=== PATIENT | female | born 2000 | race American Indian/Alaskan Native ===

== ENCOUNTER 2021-01-26 12:11 | Emergency (ER) | payer MEDICAID, OTHER ==
--- NOTE | 2021-01-26 14:09 | CR ---
INDICATION: Pain. TECHNIQUE: Two views of the left foot. COMPARISON: None. IMPRESSION: No acute fracture, subluxation or dislocation. Dictated by Deandre Douglas MD @ 01/26/2021 2:08:36 PM Dictated by: Deandre Douglas MD @ 01/26/2021 14:08:42 (Electronically Signed)
--- NOTE | 2021-01-26 14:17 | CR ---
INDICATION: Pain. TECHNIQUE: Three views of the left ankle. COMPARISON: None. IMPRESSION: No acute fracture is identified. Ankle mortise is symmetric. Dictated by Deandre Douglas MD @ 01/26/2021 2:16:27 PM Dictated by: Deandre Douglas MD @ 01/26/2021 14:16:36 (Electronically Signed)
--- NOTE | 2021-01-26 14:22 | EDM.PDOC ---
ED HPI GENERAL MEDICAL PROBLEM - General Stated Complaint: lft foot droppde a shelf on it Time Seen by Provider: 01/26/21 14:21 Source of Information: Reports: Patient History Limitations: Reports: No Limitations - History of Present Illness INITIAL COMMENTS - FREE TEXT/NARRATIVE: 20-year-old female presents for left foot injury. Patient dropped a shelf on her foot. Ambulatory afterwards had no other injuries ED ROS GENERAL - Review of Systems Review Of Systems: Comprehensive ROS is negative, except as noted in HPI. ED EXAM, GENERAL - Physical Exam Exam: See Below Exam Limited By: No Limitations General Appearance: Alert, WD/WN, No Apparent Distress Ears: Hearing Grossly Normal Throat/Mouth: Normal Voice, No Airway Compromise Head: Atraumatic, Normocephalic Neck: Normal Inspection Respiratory/Chest: No Respiratory Distress, No Accessory Muscle Use Cardiovascular: Normal Peripheral Pulses Extremities: Normal Inspection, Other (Ecchymosis to dorsum of left foot and great toe with normal capillary refill, mild tenderness to palpation, no overt deformities) Neurological: Alert, Normal Cognition, Normal Gait Psychiatric: Normal Affect, Normal Mood Skin Exam: Warm, Dry, Intact, Normal Color Course - Re-Assessments/Exams Free Text/Narrative Re-Assessment/Exam: 01/26/21 14:22 No osseous abnormality on x-ray imaging. Will discharge patient with PMD follow-up. Departure - Departure Time of Disposition: 14:22 Disposition: Home, Self-Care 01 Condition: Good Clinical Impression: Foot injury Qualifiers: Encounter type: initial encounter Laterality: left Qualified Code(s): S99.922A - Unspecified injury of left foot, initial encounter - Discharge Information Instructions: Crush Injury of the Foot Referrals: PCP,Not In Area [Primary Care Provider] - Additional Instructions: The following information is given to patients seen in the emergency department who are being discharged to home. This information is to outline your options for follow-up care. We provide all patients seen in our emergency department with a follow-up referral. The need for follow-up, as well as the timing and circumstances, are variable depending upon the specifics of your emergency department visit. If you don't have a primary care physician on staff, we will provide you with a referral. We always advise you to contact your personal physician following an emergency department visit to inform them of the circumstance of the visit and for follow-up with them and/or the need for any referrals to a consulting specialist. The emergency department will also refer you to a specialist when appropriate. This referral assures that you have the opportunity for follow-up care with a specialist. All of these measure are taken in an effort to provide you with optimal care, which includes your follow-up. Under all circumstances we always encourage you to contact your private physician who remains a resource for coordinating your care. When calling for follow-up care, please make the office aware that this follow-up is from your recent emergency room visit. If for any reason you are refused follow-up, please contact the [facility] Emergency Department at and asked to speak to the emergency department charge nurse. Please follow up with your primary care physician. If you do not have a primary care physician, see below: [facility] [address] [place] [id number] [facility] [address] [place] [address] [phone] [facility] [address] [place] [id number]
== END 2021-01-26 14:57 | disposition home or self-care (01) ==
LOC: MW.ED 12:11
DX: S90.112A Contusion of left great toe without damage to nail, initial encounter (principal); S90.32XA Contusion of left foot, initial encounter; W20.8XXA Other cause of strike by thrown, projected or falling object, initial encounter
CPT/HCPCS: 73610-26-LT; 73610-LT; 73620-26-LT; 73620-LT; 99283-25